=== PATIENT | female | born 1985 | race Caucasian/White ===

== ENCOUNTER 2018-10-03 17:37 | Emergency (ER) | payer MEDICAID ==
[2018-10-03] MEDS ORDERED: ONDANSETRON HCL IV 4 MG/2 ML VIAL IVP ONE ×2 (18:07→20:03)
[2018-10-03] MEDS ORDERED: HYOSCYAMINE SULFATE ODT 0.125 MG TAB.SUBL SL ONE ×2 (18:07→20:58)
--- NOTE | 2018-10-03 18:11 | Emergency Department Record ---
History of Present Illness - General Chief complaint: Vomiting Stated complaint: VOMITING Time Seen by Provider: 10/03/18 18:07 Source: Patient Mode of Arrival: Ambulatory Limitations: No limitations - History of Present Illness Initial comments: 33 yo female presents to ED for evaluation of nausea, vomiting, and RUQ pain symptoms for the past 3 hours. Patient reports several ill family members with similar symptoms 2 days ago, denies fevers, chills, change in stools, or urinary symptoms. Patient reports history of tubal ligation and as well as recent diagnosis of lupus. MD complaint: Abdominal pain, Nausea, Vomiting Onset/Timin -: Hour(s) Description of Vomiting: Watery Associated Abdominal Pain: Yes Location: RUQ Radiation: None Severity scale (1-10): 10 Quality: Cramping Consistency: Constant Improves with: None Worsens with: None Associated Symptoms: Nausea/vomiting - Related Data Home Medications Medication Instructions Recorded Confirmed Last Taken Hydroxychloroquine Sulfate 200 mg PO DAILY 10/03/18 10/03/18 Unknown [Plaquenil] Previous Rx's Medication Instructions Recorded Hyoscyamine Sulfate [Levsin-Sl] 0.25 mg SL Q6H PRN #15 tab.subl 10/03/18 Ondansetron [Zofran Odt] 4 mg PO Q6H PRN #15 tab.rapdis 10/03/18 Allergies Allergy/AdvReac Type Severity Reaction Status Date / Time No Known Drug Allergies Allergy Unverified 06/16/18 14:18 Travel Screening - Travel/Exposure Within Last 30 Days Have you traveled within the last 30 days?: No Review of Systems Constitutional: Denies: Chills, Fever, Malaise, Night sweats Eyes: Denies: Eye discharge, Eye pain ENT: Denies: Congestion, Ear pain, Epistaxis Respiratory: Denies: Cough, Dyspnea Cardiovascular: Denies: Chest pain, Dyspnea on exertion Endocrine: Denies: Fatigue, Heat or cold intolerance Gastrointestinal: Reports: Abdominal pain, Nausea, Vomiting. Denies: Constipation Genitourinary: Denies: Incontinence, Retention Musculoskeletal: Denies: Arthralgia, Back pain Skin: Denies: Bruising, Change in color Neurological: Denies: Abnormal gait, Confusion, Headache Psychiatric: Denies: Anxiety Hematological/Lymphatic: Denies: Anemia, Blood Clots Past Medical History - SOCIAL HISTORY Smoking Status: Never smoker Alcohol Use: None Drug Use: None - RESPIRATORY Hx Respiratory Disorders: No - CARDIOVASCULAR Hx Cardio Disorders: No - NEURO Hx Neuro Disorders: Yes Hx Headaches: Yes Comment:: lupus - GI Hx GI Disorders: No - Hx Genitourinary Disorders: No - ENDOCRINE Hx Endocrine Disorders: No - MUSCULOSKELETAL Hx Musculoskeletal Disorders: No - PSYCH Hx Psych Problems: Yes Hx Anxiety: Yes Hx Depression: Yes (post-) - HEMATOLOGY/ONCOLOGY Hx Hematology/Oncology Disorders: No Family Medical History Any Significant Family History?: No Physical Exam - General General Appearance: Alert, Oriented x3, Cooperative, Moderate distress Limitations: No limitations - Head Head exam: Atraumatic, Normocephalic, Normal inspection Head exam detail: negative: Abrasion, Contusion, Barnes's sign, General tenderness, Hematoma, Laceration - Eye Eye exam: Normal appearance. negative: Conjunctival injection, Periorbital swelling, Periorbital tenderness, Scleral icterus - ENT Ear exam: negative: Auricular hematoma, Auricular trauma Nasal Exam: negative: Active bleeding, Discharge, Dried blood, Foreign body Mouth exam: negative: Drooling, Laceration, Muffled voice, Tongue elevation - Neck Neck exam: Normal inspection. negative: Meningismus, Tenderness - Respiratory Respiratory exam: Normal lung sounds bilaterally. negative: Respiratory distress, Rhonchi, Stridor, Wheezes - Cardiovascular Cardiovascular Exam: Regular rate, Normal rhythm, Normal heart sounds - GI/Abdominal GI/Abdominal exam: Soft, Tenderness (Moderate TTP RUQ, no rebound or guarding are present on examination.). negative: Rebound, Rigid - Rectal Rectal exam: Deferred - exam: Deferred - Extremities Extremities exam: Normal inspection. negative: Pedal edema, Tenderness - Back Back exam: Denies: CVA tenderness (R), CVA tenderness (L) - Neurological Neurological exam: Alert, Normal gait, Oriented X3 - Psychiatric Psychiatric exam: Normal affect, Normal mood - Skin Skin exam: Normal color. negative: Abrasion Type of lesion: negative: abrasion Course - Reevaluation(s) Reevaluation #1: 10/03/18 19:01 Laboratory studies were reviewed: WBC 18.8 CO2 19 AG 21. Labs are otherwise grossly unremarkable for an acute process. Patient is currently CT imaging, 2nd Liter ordered to infuse. Will reassess upon return from radiology. Reevaluation #2: 10/03/18 21:03 Patient has had no further vomiting while in ED, pulse improved 76. Patient reports that she is feeling much better, and appears stable for discharge at this time. Medical Decision Making - Lab Data Result diagrams: 10/03/18 18:20 10/03/18 18:20 Disposition Disposition: Discharge Clinical Impression: Nausea & vomiting Qualifiers: Vomiting type: unspecified Vomiting Intractability: non-intractable Qualified Code(s): R11.2 - Nausea with vomiting, unspecified Disposition: Home, Self-Care Condition: (2) Stable Instructions: Acute Nausea and Vomiting (ED) Additional Instructions: Return to ED if your symptoms worsen or if you have any concerns. Zofran and Levsin as directed. Follow-up with your family doctor in 1-3 days as directed. Prescriptions: Hyoscyamine Sulfate [Levsin-Sl] 0.25 mg SL Q6H PRN #15 tab.subl PRN Reason: Abdominal Pain Ondansetron [Zofran Odt] 4 mg PO Q6H PRN #15 tab.rapdis PRN Reason: Nausea/Vomiting Forms: Patient Portal Access Time of Disposition: 20:57 Quality - Quality Measures Quality Measures: N/A - Blood Pressure Screening Does Patient Have Any of the Following: No Blood Pressure Classification: Normal BP Reading Systolic Measurement: 110 Diastolic Measurement: 72 Screening for High Blood Pressure: < Normal BP, F/U Not Required > [G8783]
[2018-10-03] MEDS ORDERED: 0.9 % SODIUM CHLORIDE 1000ML 1,000 ML IV SCH ×2 (18:15→19:15)
[2018-10-03 18:33] LABS: BASO % 0.3 % (0-6); EOS % 0.8 % (0-6); GRAN % 79.2 % (47-80); HEMOGLOBIN 16.1 gm/dl (11.6-16.0); LYMPH % 13.1 % (16-45); MEAN CORPUSCULAR HEMOGLOBIN 30.8 pg (27-33); MEAN CORPUSCULAR HGB CONC 33.5 g/dl (32-36); MEAN PLATELET VOLUME 10.1 fl (7.4-10.4); MONO % 6.6 % (0-9); PLATELET COUNT 416 K/uL (130-400); RED BLOOD COUNT 5.22 M/uL (3.80-5.40); RED CELL DISTRIBUTION WIDTH 13.3 % (11.5-14.5); WHITE BLOOD COUNT W/O DIFF 18.8 K/uL (4.2-12.2)
[2018-10-03 18:54] LABS: BLOOD UREA NITROGEN 15 mg/dL (6-20); CREATININE 0.7 mg/dL (0.5-0.9); EST GLOMERULAR FILTRATION RATE > 60 mL/min
[2018-10-03 18:55] LABS: TOTAL PROTEIN 8.4 g/dL (6.6-8.7)
[2018-10-03 18:57] LABS: GLUCOSE,RANDOM 96 mg/dL (74-109)
[2018-10-03 19:00] LABS: ALB/GLOB RATIO 1.9 (1.1-1.8); ALBUMIN 5.5 g/dL (4.0-5.0); ALKALINE PHOSPHATASE 56 U/L (35-104); ALT/SGPT 21 U/L (<33); AST/SGOT 25 U/L (10.0-35.0); LIPASE 44 U/L (13-60)
[2018-10-03] MEDS ORDERED: ONDANSETRON 4 MG ODT TABLET SL ONE (20:58)
--- NOTE | 2018-10-05 07:30 | CT SCAN REPORT ---
EXAM: CT SCAN ABDOMEN/PELVIS W CONTRAST HISTORY: VOMITING AND RIGHT LOWER QUADRANT ABDOMINAL PAIN. TECHNIQUE: CT of the abdomen and pelvis with 100 mL Omnipaque-300 intravenous contrast. COMPARISON: CT abdomen and pelvis, 01/05/2003. FINDINGS: Unremarkable CT appearance of the liver, gallbladder, spleen, adrenal glands, and pancreas. Symmetrical renal perfusion. No hydronephrosis. Likely small right upper pole renal cortical cyst. Multiple fluid-containing nondilated small bowel loops. Stomach is nondilated. No focal colonic thickening or inflammatory change. Normal appendix. No free air or free fluid. Small 2.9 cm cystic structure in the left adnexal region. Unremarkable appearance of the urinary bladder. Abdominal aorta has normal course and caliber. Small hiatal hernia. No acute osseous findings. IMPRESSION: 1. NO ACUTE ABDOMINAL OR PELVIC FINDINGS. APPENDIX IS NORMAL. 2. NONSPECIFIC FLUID CONTAINING NONDILATED SMALL BOWEL LOOPS. 3. SMALL HIATAL HERNIA. JOB NUMBER: [id number] MTDD
== END 2018-10-03 21:18 | disposition home or self-care (01) ==
LOC: ER 17:37
DX: R11.2 Nausea with vomiting, unspecified (principal); R10.11 Right upper quadrant pain
CPT/HCPCS: 99284 ×2; 96376; 96374; 96361; 83690; 85025; 80053; 84703; 74177; Q9967; J1980; J2405; J7030

== ENCOUNTER 2019-04-20 15:41 | Emergency (ER) | payer MEDICAID ==
[2019-04-20] MEDS ORDERED: CLINDAMYCIN 150 MG CAP PO ONE (16:34)
--- NOTE | 2019-04-20 16:43 | Emergency Department Record ---
History of Present Illness - General Chief complaint: Jaw Swelling Stated complaint: SWELLING UNDER CHIN Time Seen by Provider: 04/20/19 16:29 Source: Patient Mode of Arrival: Ambulatory Limitations: No limitations - History of Present Illness Initial comments: The patient is here due to swelling under her chin for 3 days. She states the swelling started on the lateral sides of her mandible and then moved to just under the chin. Now there is a tender lump there. Yesterday she also did develop large pimples over the anterior aspect of the chin. She denies any dental pain, pain or difficulty swallowing, cough, fever, or speech difficulties. MD complaint: Other Onset/Timin -: Days(s) Location: Other Severity scale (1-10): 8 Quality: Burning Improves with: None Worsens with: None - Related Data Previous Rx's Medication Instructions Recorded Clindamycin HCl [Cleocin HCl] 300 mg PO QID #28 capsule 04/20/19 Allergies Allergy/AdvReac Type Severity Reaction Status Date / Time No Known Drug Allergies Allergy Verified 04/20/19 16:34 Travel Screening - Travel/Exposure Within Last 30 Days Have you traveled within the last 30 days?: No - Travel/Exposure Within Last Year Have you traveled outside the [place] in the last year?: No - Additonal Travel Details Have you been exposed to anyone with a communicable illness?: No Review of Systems Constitutional: Denies: Chills, Fever, Other ENT: Denies: Congestion Respiratory: Denies: Cough, Dyspnea Past Medical History - SOCIAL HISTORY Smoking Status: Never smoker Alcohol Use: None Drug Use: None, Heavy Drug Use Detail:: Marijuana - RESPIRATORY Hx Respiratory Disorders: No - CARDIOVASCULAR Hx Cardio Disorders: No - NEURO Hx Neuro Disorders: Yes Hx Headaches: Yes Comment:: lupus - GI Hx GI Disorders: No - Hx Genitourinary Disorders: No - ENDOCRINE Hx Endocrine Disorders: No - MUSCULOSKELETAL Hx Musculoskeletal Disorders: No - PSYCH Hx Psych Problems: Yes Hx Anxiety: Yes Hx Depression: Yes (post-) - HEMATOLOGY/ONCOLOGY Hx Hematology/Oncology Disorders: No Family Medical History Any Significant Family History?: No Physical Exam - General General Appearance: Alert, Oriented x3, Cooperative, No acute distress - Head Head exam: Atraumatic, Normocephalic, Normal inspection Image of Chin: 1 - Area of pain and tenderness. 2 - Pimple 3 - Pimple. - Eye Eye exam: Normal appearance, PERRL - ENT ENT exam: Other (There are 2 pimples over the anterior chin.). negative: Normal exam Mouth exam: Normal external inspection, Tongue normal (There is no fullness or tenderness with palpation under the tongue.). negative: Muffled voice, Tongue elevation, Trismus Teeth exam: Normal inspection. negative: Dental caries Throat exam: Normal inspection. negative: Tonsillar erythema, Tonsillar exudate - Neck Neck exam: Lymphadenopathy (There is a tender and swollen lymph node in the submental region. There is no overlying erythema, or any pointing abscess or anything to drain at this time. ), Tenderness. negative: Normal inspection - Respiratory Respiratory exam: Normal lung sounds bilaterally. negative: Respiratory distress - Cardiovascular Cardiovascular Exam: Regular rate, Normal rhythm, Normal heart sounds Course Vital Signs 04/20/19 16:25 Temperature 98.0 F Pulse Rate 71 Respiratory 18 Rate Blood Pressure 109/74 Pulse Ox 100 - Reevaluation(s) Reevaluation #1: I did discuss the need for an oral Abx and warm compresses with the patient. She is to see her PCP later this week for recheck of the swelling under the chin. I did discuss with the patient that if the lymph node does not return back to normal under the chin it will need to be surgically removed. The patient understands and will comply. 04/20/19 16:41 Disposition Disposition: Discharge Clinical Impression: Swelling, mass, or lump on face Disposition: Home, Self-Care Condition: (2) Stable Instructions: Cyst (ED), Warm Compress or Soak (ED) Additional Instructions: Please use warm compresses on the chin area every 2 hours for 20 minutes when possible. Take the Clindamycin as directed and please see your family doctor later this week for recheck. Return to the ER for any worsening pain, swelling, or any fever. Prescriptions: Clindamycin HCl [Cleocin HCl] 300 mg PO QID #28 capsule Forms: Patient Portal Access Time of Disposition: 16:44 Quality - Quality Measures Quality Measures: N/A - Blood Pressure Screening View Details: Yes Does Patient Have Any of the Following: No Blood Pressure Classification: Normal BP Reading Systolic Measurement: 109 Diastolic Measurement: 74 Screening for High Blood Pressure: < Normal BP, F/U Not Required > [G8718]
== END 2019-04-20 16:51 | disposition home or self-care (01) ==
LOC: ER 15:41
DX: R22.0 Localized swelling, mass and lump, head (principal)
CPT/HCPCS: 99282

== ENCOUNTER 2019-09-28 15:43 | Emergency (ER) | payer MEDICAID ==
--- NOTE | 2019-09-28 16:22 | Emergency Department Record ---
History of Present Illness - General Chief Complaint: Abdominal Pain Stated Complaint: RT ABD KPAIN, VOMITTING Time Seen by Provider: 09/28/19 16:00 Source: Patient Mode of Arrival: Ambulatory Limitations: No limitations - History of Present Illness Initial Comments: The patient is here due to a 3 day hx of intermittent nausea and vomiting with RUQ AP. The pain is off and on and she also has had some loose stools. She denies any change of the pain with food and also denies any fever or dysuria. The patient has had ovarian surgery and a BTL in the past. The pain mainly got worse after multiple bouts of vomiting. The patient is all in the upper abdomen and none in the RLQ. MD Complaint: Abdominal pain Onset/Timin -: Days(s) Location: RUQ Migration to: Periumbilical Severity scale (1-10): 8 Quality: Stabbing Consistency: Constant Improves With: Nothing Worsens With: Nothing Associated Symptoms: Nausea, Vomiting - Related Data Patient : No Home Medications Medication Instructions Recorded Confirmed Last Taken Sertraline HCl [Zoloft] 50 mg PO DAILY 09/28/19 09/28/19 Unknown Previous Rx's Medication Instructions Recorded Ondansetron [Zofran Odt] 4 mg SL .Q4-6H PRN #12 tab.rapdis 09/28/19 Allergies Allergy/AdvReac Type Severity Reaction Status Date / Time No Known Drug Allergies Allergy Unverified 07/23/19 19:17 Travel Screening - Travel/Exposure Within Last 30 Days Have you traveled within the last 30 days?: No Review of Systems Constitutional: Reports: Malaise. Denies: Chills, Fever Eyes: Denies: Eye discharge ENT: Denies: Congestion Respiratory: Denies: Cough, Dyspnea Cardiovascular: Denies: Arrhythmia, Chest pain Endocrine: Denies: Fatigue Gastrointestinal: Reports: Abdominal pain, Nausea Genitourinary: Denies: Dysuria Musculoskeletal: Denies: Arthralgia Past Medical History - SOCIAL HISTORY Smoking Status: Never smoker - RESPIRATORY Hx Respiratory Disorders: No - CARDIOVASCULAR Hx Cardio Disorders: No - NEURO Hx Neuro Disorders: Yes Hx Headaches: Yes Comment:: lupus - GI Hx GI Disorders: No - Hx Genitourinary Disorders: No - ENDOCRINE Hx Endocrine Disorders: No - MUSCULOSKELETAL Hx Musculoskeletal Disorders: No - PSYCH Hx Psych Problems: Yes Hx Anxiety: Yes Hx Depression: Yes (post-) - HEMATOLOGY/ONCOLOGY Hx Hematology/Oncology Disorders: No Family Medical History Any Significant Family History?: No Physical Exam - General General Appearance: Alert, Oriented x3, Cooperative, No acute distress - Head Head exam: Atraumatic - Eye Eye exam: Normal appearance - ENT Throat exam: Normal inspection. negative: Tonsillar erythema, Tonsillar exudate - Neck Neck exam: Normal inspection, Full ROM. negative: Tenderness - Respiratory Respiratory exam: Normal lung sounds bilaterally. negative: Respiratory distress - Cardiovascular Cardiovascular Exam: Regular rate, Normal rhythm, Normal heart sounds - GI/Abdominal GI/Abdominal exam: Soft, Tenderness (There is mild RUQ tenderness with a soft abdomen.). negative: Distended, Guarding, Rebound, Rigid - Extremities Extremities exam: Normal inspection, Full ROM, Normal capillary refill. negative: Tenderness Image of Full Body: 1 - Area of pain and mild tenderness. - Neurological Neurological exam: Alert, Normal gait. negative: Abnormal gait, Motor sensory deficit Course Vital Signs 09/28/19 15:50 Temperature 98.0 F Pulse Rate 57 L Respiratory 18 Rate Blood Pressure 107/71 Pulse Ox 99 - Reevaluation(s) Reevaluation #1: The patient is doing better at this time. Her pain is 50% improved and her repeat temp is 97.4 orally. On exam she only has very mild RUQ tenderness. There is no tenderness lateral or below the umbilicus. I do believe the pain is mainly from wretching with the vomiting. We will give the patient a dose of Toradol and re-assess. 09/28/19 17:33 Reevaluation #2: The patient is doing a lot better at this time. She states the pain is significantly improved at this time. On exam there is no tenderness in the RLQ. I did discuss the fact with the patient that she will need to return in the AM if the pain persists or worsens. I also did discuss the US report with the patient and the need to see her PCP for further workup. 09/28/19 18:05 Medical Decision Making - Data Complexity MDM Data: Labs Ordered and/or Reviewed, X-Ray Ordered and/or Reviewed - Lab Data Result diagrams: 09/28/19 16:30 09/28/19 16:30 - Radiology Data Radiology results: Report reviewed (US: Neg GB abnormality.) Disposition Disposition: Discharge Clinical Impression: Gastroenteritis Disposition: Home, Self-Care Condition: (2) Stable Instructions: Abdominal Pain (ED) Additional Instructions: Please use the Zofran for nausea and please use Tylenol or Motrin for pain. Drink plenty of fluids. Please see your doctor later this week for recheck if not better. Return to the ER for any persistent or increased abdominal pain, fever, or worsening vomiting. Prescriptions: Ondansetron [Zofran Odt] 4 mg SL .Q4-6H PRN #12 tab.rapdis PRN Reason: Nausea Forms: Patient Portal Access Time of Disposition: 18:08 Quality - Quality Measures Quality Measures: N/A - Blood Pressure Screening View Details: Yes Does Patient Have Any of the Following: No Blood Pressure Classification: Normal BP Reading Systolic Measurement: 107 Diastolic Measurement: 71 Screening for High Blood Pressure: < Normal BP, F/U Not Required > [G8783]
[2019-09-28 16:47] LABS: ABSOLUTE NEUTROPHIL COUNT 6.43; BASO % 0.3 % (0-6); EOS % 1.1 % (0-6); GRAN % 58.5 % (47-80); HEMATOCRIT 41.6 % (35.0-47.0); HEMOGLOBIN 13.4 gm/dl (11.6-16.0); LYMPH % 32.3 % (16-45); MEAN CELL VOLUME 93.1 fl (81-97); MEAN CORPUSCULAR HGB CONC 32.2 g/dl (32-36); MEAN PLATELET VOLUME 9.5 fl (7.4-10.4); MONO % 7.8 % (0-9); PLATELET COUNT 432 K/uL (130-400); RED BLOOD COUNT 4.47 M/uL (3.80-5.40); RED CELL DISTRIBUTION WIDTH 12.9 % (11.5-14.5)
[2019-09-28] MEDS: ONDANSETRON HCL IV 4 MG/2 ML VIAL IV ONE (16:48)
[2019-09-28] MEDS: 0.9 % SODIUM CHLORIDE 1,000 ML BAG IV ONE (16:48)
[2019-09-28 16:54] LABS: BLOOD UREA NITROGEN 8 mg/dL (6-20)
[2019-09-28 16:55] LABS: CREATININE 0.7 mg/dL (0.5-0.9); EST GLOMERULAR FILTRATION RATE > 60 mL/min; LIPASE 27 U/L (13-60); TOTAL PROTEIN 7.3 g/dL (6.6-8.7)
[2019-09-28 16:57] LABS: GLUCOSE,RANDOM 104 mg/dL (74-109)
[2019-09-28 17:00] LABS: ALBUMIN 4.7 g/dL (4.0-5.0); ALKALINE PHOSPHATASE 57 U/L (35-104); ALT/SGPT 13 U/L (<33); AST/SGOT 19 U/L (10.0-35.0); BILIRUBIN,DIRECT < 0.2 mg/dL (0-0.3)
[2019-09-28 17:15] LABS: URINE APPEARANCE CLEAR; URINE BILIRUBIN NEGATIVE (NEGATIVE); URINE BLOOD NEGATIVE (NEGATIVE); URINE COLOR YELLOW; URINE GLUCOSE (UA) NEGATIVE (NEGATIVE); URINE KETONE NEGATIVE (NEGATIVE); URINE LEUKOCYTE ESTERASE NEGATIVE (NEGATIVE); URINE NITRITE NEGATIVE (NEGATIVE); URINE PROTEIN NEGATIVE (NEGATIVE); URINE UROBILINOGEN 0.2 E.U./dL (0.20 - 1.00)
[2019-09-28] MEDS: ACETAMINOPHEN 1,000 MG/100 ML BTL IVPB ONE (17:15)
--- NOTE | 2019-09-28 17:20 | ULTRASOUND REPORT ---
EXAMINATION: Ultrasound Abdomen Limited - Right Upper Quadrant Ultrasound EXAM DATE: 09/28/2019 5:04 PM TECHNIQUE: Ultrasound of the abdomen was performed with attention to the right upper quadrant. Imag es were recorded and stored on PACS. INDICATION: RUQ pain FINDINGS: Liver: Enlarged, measuring 20 cm. No focal lesion. Gallbladder: No abnormal internal echoes. There is no gallbladder wall thickening or pericholecysti c fluid. The technologist reports no tenderness over the gallbladder. Common Bile Duct: There is no biliary dilatation. The common duct measures 2 mm. Pancreas: The visualized pancreas is normal. IMPRESSION: 1. Hepatomegaly. Dictated by: Grayson Newsome MD on 09/28/2019 5:11 PM. .
[2019-09-28] MEDS: KETOROLAC 30 MG/ML VIAL IVP ONE (17:42)
[2019-09-28] MEDS: ONDANSETRON HCL IV 4 MG/2 ML VIAL IVP ONE (17:49)
== END 2019-09-28 18:21 | disposition home or self-care (01) ==
LOC: ER 15:43
DX: K52.9 Noninfective gastroenteritis and colitis, unspecified (principal); R10.11 Right upper quadrant pain; R11.2 Nausea with vomiting, unspecified
CPT/HCPCS: 99284 ×2; 96376; 96365; 96375; 83690; 85025; 80076; 80048; 81003; 84703; 76705; J1885; J2405; J7030